=== PATIENT | female | born 1975 | race Two or more races ===

== ENCOUNTER → 2020-08-18 | Outpatient (CLI) | payer OTHER ==
[~2020-08-18] MED LIST: NONE PER PT
== END | disposition home or self-care (01) ==
LOC: STAR 13:49
PROVIDERS: ATTEND Obstetrics & Gynecology
DX: Z20.822 Contact with and (suspected) exposure to COVID-19 (principal); D50.0 Iron deficiency anemia secondary to blood loss (chronic); N93.8 Other specified abnormal uterine and vaginal bleeding; D25.9 Leiomyoma of uterus, unspecified
CPT/HCPCS: U0003

== ENCOUNTER 2020-08-22 05:45 | Day surgery (SDC) | payer OTHER ==
[~2020-08-22] VITALS: Ht 144.8 cm; Wt 60.7 kg
[2020-08-22] MEDS ORDERED: LACTATED RINGERS 1,000 ML IV SCH (06:30)
[2020-08-22 06:34] VITALS: BP 129/64
[2020-08-22] MEDS ORDERED: CHLORHEXIDINE 15 ML UDC ONE (06:37)
[2020-08-22] MEDS ORDERED: MIDAZOLAM 1 MG/ML, 2ML ONE (06:59)
[2020-08-22] MEDS ORDERED: FENTANYL PF 250 MCG/5ML ONE (06:59)
[2020-08-22] MEDS ORDERED: CHLORHEXIDINE 15 ML UDC PO ONE (07:00)
[2020-08-22] MEDS ORDERED: INDIGO CARMINE 0.8%, 5ML ONE (07:15)
[2020-08-22] MEDS ORDERED: BUPIVACAINE/PF 0.25% ONE (07:15)
[2020-08-22] MEDS ORDERED: KETOROLAC 30 MG/1 ML ONE (07:34)
[2020-08-22] MEDS ORDERED: METOCLOPRAMIDE 5 MG/ML, 2ML ONE (07:34)
[2020-08-22] MEDS ORDERED: CEFAZOLIN 1,000 MG ONE (08:56)
[2020-08-22] MEDS ORDERED: DEXAMETHASONE 4 MG/ML, 1ML ONE (08:56)
[2020-08-22] MEDS ORDERED: ROCURONIUM 10MG/ML,5ML ONE (08:56)
[2020-08-22] MEDS ORDERED: ONDANSETRON 2MG/ML, 2ML ONE ×2 (08:56→10:18)
[2020-08-22] MEDS ORDERED: PROPOFOL 10 MG/ML, 20ML ONE (08:56)
[2020-08-22] MEDS ORDERED: SUCCINYLCHOLINE 20 MG/ML, 10ML ONE (08:56)
[2020-08-22] MEDS ORDERED: NEOSTIGMINE 1 MG/ML, 10ML ONE (08:56)
[2020-08-22] MEDS ORDERED: GLYCOPYRROLATE 0.2MG/1ML, 5ML ONE (08:56)
[2020-08-22] MEDS ORDERED: EPHEDRINE 50 MG/ML, 1ML IVPush PRN (09:00)
[2020-08-22] MEDS ORDERED: OXYcodone 5 MG/5 ML ORAL.SOL UDC PO PRN (09:00)
[2020-08-22] MEDS ORDERED: ONDANSETRON 2MG/ML, 2ML IVPush PRN (09:00)
[2020-08-22] MEDS ORDERED: METHOCARBAMOL 1,000 MG in DEXTROSE 5% 100 ML IV PRN (09:00)
[2020-08-22] MEDS ORDERED: MEPERIDINE/PF 25MG/0.5ML IVPush PRN (09:00)
[2020-08-22] MEDS ORDERED: hydrALAzine 20 MG/ML, 1ML IV PRN (09:00)
[2020-08-22] MEDS ORDERED: PROMETHAZINE 25 MG/ML, 1ML IVPush PRN (09:00)
[2020-08-22] MEDS ORDERED: ACETAMINOPHEN 325 MG TABLET PO PRN (09:00)
[2020-08-22] MEDS ORDERED: LABETALOL 5MG/ML, 20ML IV PRN (09:00)
[2020-08-22] MEDS ORDERED: HYDROmorphone 1 MG/ML, 1ML INJ IVPush PRN (09:00)
[2020-08-22] MEDS ORDERED: LORazepam 2 MG/ML, 1ML IVPush PRN (09:00)
[2020-08-22] MEDS ORDERED: FENTANYL PF 100 MCG/2ML IV PRN (09:00)
[2020-08-22] MEDS ORDERED: FENTANYL PF 100 MCG/2ML ONE (09:45)
[2020-08-22] MEDS ORDERED: PROMETHAZINE 25 MG/ML, 1ML ONE (10:29)
[2020-08-22] MEDS ORDERED: IBUP-1223 PO (10:36)
[2020-08-22] MEDS ORDERED: DOCU-131 PO (10:36)
[2020-08-22] MEDS ORDERED: OXYC1TAB14 PO (10:36)
== END 2020-08-22 14:10 | disposition home or self-care (01) ==
LOC: OUT 05:45
PROVIDERS: ATTEND Obstetrics & Gynecology
DX: D25.1 Intramural leiomyoma of uterus (principal); N88.8 Other specified noninflammatory disorders of cervix uteri; D64.9 Anemia, unspecified; Z79.899 Other long term (current) drug therapy; Z72.89 Other problems related to lifestyle; Z98.890 Other specified postprocedural states
CPT/HCPCS: 58573; 81025; 88307; J0330; J0690; J1100; J1885; J2250; J2405; J2550; J2704; J2710; J2765; J3010; J7120; S2900

== ENCOUNTER 2021-02-15 02:38 | Emergency (ER) | payer OTHER ==
[~2021-02-15] VITALS: Ht 142.2 cm; Wt 61.1 kg
[2021-02-15 05:08] VITALS: BP 107/60
== END 2021-02-15 05:10 | disposition home or self-care (01) ==
LOC: ED 03:00
DX: R42 Dizziness and giddiness (principal); R11.2 Nausea with vomiting, unspecified
CPT/HCPCS: 36415; 71045; 80053; 84484; 85025; 93005; 96361; 96374; 99285; J2405; J7030